=== PATIENT | female | born 1995 | race African-American/Black ===

== ENCOUNTER 2017-06-02 16:38 | Emergency (ER) | payer OTHER ==
[~2017-06-02] VITALS: Ht 167.6 cm; Wt 100.0 kg
[2017-06-02 16:41] VITALS: BP 172/98; PULSE 82; RESP 18; TEMP 98.2; O2SAT 98
--- NOTE | 2017-06-02 17:29 | RADRPT ---
EXAM DATE/TIME: 06/02/2017 17:16 [place] COMPARISON: No previous studies available for comparison. INDICATIONS : Right knee pain after bending down. MEDICAL HISTORY : None. SURGICAL HISTORY : None. ENCOUNTER: Initial ACUITY: 1 day PAIN SCORE: 10/10 LOCATION: Right knee. FINDINGS: Four view examination of the right knee demonstrates no evidence of fracture or dislocation. Bony mi neralization is normal. The articular surfaces are intact. The suprapatellar soft tissues have a no rmal configuration. CONCLUSION: Normal examination for a patient of this age. Yuniel Lozada MD on June 02, 2017 at 17:26 Board Certified Radiologist. This report was verified electronically.
[2017-06-02] MEDS ORDERED: MEDI220T PO (17:46)
--- NOTE | 2017-06-02 17:46 | PD ---
HPI . Right knee pain Chief Complaint: Pain: Acute or Chronic Time Seen by Provider: 16:53 Travel History International Travel<30 days: No Contact w/Intl Traveler<30days: No Traveled to known affect area: No History of Present Illness HPI 22-year-old female presents to emergency room for evaluation of right knee pain that occurred this afternoon when she went down to tie her shoe and hurt her right knee pop. She has had pain subsequently. Patient is a student at [employer] and initially went to the clinic on campus for evaluation. The patient was ambulatory with pain. The right leg is neurovascularly intact. At the school clinic the Travis wrap the right knee, provided crutches and give the patient ibuprofen and referred the patient to the emergency department for further evaluation with imaging. Patient has no major medical history and doesn 't take any daily medication. PFSH Past Medical History ?: Not LMP: 05/2017 Social History Alcohol Use: No Tobacco Use: No Substance Use: No Allergies-Medications (Allergen,Severity, Reaction): Coded Allergies: No Known Allergies (Unverified , 06/02/17) Reported Meds & Prescriptions Reported Meds & Active Scripts Active Naproxen Sodium 220 Mg Tab 440 Mg PO BID PRN 7 Days Review of Systems Except as stated in HPI: all other systems reviewed are Neg Physical Exam Narrative GENERAL: Well-nourished, well-developed 22-year-old female patient in no acute distress. Nontoxic appearing. SKIN: Focused skin assessment warm/dry. HEAD: Normocephalic. Atraumatic. NECK: Supple, trachea midline. No JVD or lymphadenopathy. CARDIOVASCULAR: Regular rate and rhythm without murmurs, gallops, or rubs. +2 pedal pulses bilaterally. RESPIRATORY: Breath sounds equal bilaterally. No accessory muscle use. GASTROINTESTINAL: Abdomen soft, non-tender, nondistended. MUSCULOSKELETAL: Right knee tenderness with palpation. Limited range of motion with full flexion and full extension. No obvious deformity, ecchymosis, erythema, cyanosis, or edema. Data Data Last Documented VS Vital Signs Date Time Temp Pulse Resp B/P (MAP) Pulse Ox O2 Delivery O2 Flow Rate FiO2 06/02/17 17:49 06/02/17 16:41 98.2 82 18 98 Orders Orders Knee, Complete (4vws) (06/02/17 17:07) Ice/Cold Pack (06/02/17 17:07) Ed Discharge Order (06/02/17 17:46) [facility] Medical Decision Making Medical Screen Exam Complete: Yes Emergency Medical Condition: Yes Differential Diagnosis Differential diagnoses include but are not limited to knee sprain, knee contusion, patellar dislocation Narrative Course 22-year-old female presents emergency department for evaluation of right knee pain that occurred this afternoon when she bent down to tie her shoe and hurt her right knee pop. Patient is a referred pain. Patient has limited range of motion with full extension and full flexion. There is no obvious deformity, ecchymosis, cyanosis, erythema or edema. The patient's right leg is neurovascularly intact. X-ray of the right knee ordered and pending. Ice applied to the right knee. X-ray of the right knee shows a normal examination. Travis wrap applied to right knee. Patient discharged home with rice instructions and instructions to follow up with her primary care to get an orthopedic referral for further evaluation if symptoms persist. Patient already has crutches issued from school clinic. Last Impressions Knee X-Ray 06/02/171706 Signed Impressions: Service Date/Time: June 17:16 - CONCLUSION: Normal examination for a patient of this age. Yuniel Lozada MD Diagnosis Primary Impression: Knee sprain Qualified Codes: S83.91XA - Sprain of unspecified site of right knee, initial encounter Referrals: Primary Care Physician Patient Instructions: General Instructions, Knee Sprain (DC) Additional Instructions: Please return to emergency department if your symptoms return or worsen. Follow up with your primary care provider. Take medications as prescribed. Ice therapy to right knee, rest, ice, Travis wrap with activity and elevate when resting. Med/Other Pt SpecificInfo: Prescription(s) given Scripts Naproxen Sodium (Naproxen Sodium) 220 Mg Tab 440 MG PO BID Y for Pain Management for 7 Days, #28 TAB 0 Refills Prov: Marisa Clay Merle WADE 06/02/17 Disposition: 01 DISCHARGE HOME Condition: Stable Obed,Marisa WADE Jun 02, 2017 17:46
== END 2017-06-02 17:54 | disposition home or self-care (01) ==
LOC: NEPK 16:38
DX: S83.91XA Sprain of unspecified site of right knee, initial encounter (principal); X58.XXXA Exposure to other specified factors, initial encounter
CPT/HCPCS: 73564; 99283